=== PATIENT | female | born 1980 | race Caucasian/White ===

== ENCOUNTER → 2016-12-23 | Outpatient (CLI) | payer MEDICAID ==
[~2016-12-23] MED LIST: APAP/BUTALBITAL1 TA1 PO; BENTYL20 MG PO; BENZONATATE100 MG PO; BUSPAR 10MG TAB10 MG PO; CIPRO 500MG TA500 MG PO; CITALOPRAM HYDR20 MG PO; CLONIDINE0.1 MG PO; DILANTIN 100MG100 MG PO; DULOXETINE HYDR30 MG PO; GABAPENTIN 400400 MG PO; GABAPENTIN800 MG PO; KEPPRA 500 MG500 MG PO; KLONOPIN1 MG PO; LORTAB 5/500 501 TAB PO; MEDROL 4MG. DOSE4 MG PO; NAPROSYN 375MG375 MG PO; NOMEDS; PRILOSEC OTC20 MG PO; PRILOSEC20 M1 PO; QUETIAPINE FUM100 M2 PO; QUETIAPINE FUM100 MG PO; RANITIDINE 150150 MG PO; VISTARIL50 MG PO; ZOFRAN ODT4 MG PO; ZOFRAN4 MG PO
[2016-12-25 08:46] LABS: Thyroid Peroxidase (TPO) Ab 10 IU/mL (0-34)
[2016-12-25 10:39] LABS: Thyroglobulin Antibody <1.0 IU/mL (0.0-0.9)
== END ==
LOC: LAB 15:50
PROVIDERS: Physician Assistant
DX: R63.5 Abnormal weight gain (principal)

== ENCOUNTER → 2017-06-23 | Outpatient (CLI) | payer MEDICAID ==
--- NOTE | 2017-06-23 16:24 | RADIOLOGY REPORT PS360 ---
EXAM: LUMBAR SPINE 5 VIEWS HISTORY: LUMBAR PAIN ORDERING PHYSICIAN: NUNU JOHN PATIENT AGE: 36 years COMPARISON: None FINDINGS: Normal alignment. No fracture or dislocation. No lytic or blastic change. There is slight decrease in the L5-S1 disc space suggesting mild degenerative disc disease. Bilateral pars interarticularis defect is present at L5 with minimal anterolisthesis of L5.. There is some minimal facet hypertrophic change at L5-S1. IMPRESSION: 1. Minimal grade 1 spondylitic spondylolisthesis of L5 on S1 with mild degenerative disc disease and facet arthritic change at that level overall not significant changed
== END ==
LOC: RAD 09:59
DX: M54.5 Low back pain (principal)